=== PATIENT | male | born 1980 | race Two or more races ===

== ENCOUNTER 2018-05-22 09:56 | Emergency (ER) | payer SELFPAY ==
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
[2018-05-22 11:31] VITALS: BP 144/87
== END 2018-05-22 11:31 ==
DX: S02.2XXA Fracture of nasal bones, initial encounter for closed fracture (principal); S02.40DA Maxillary fracture, left side, initial encounter for closed fracture; Y04.8XXA Assault by other bodily force, initial encounter; Z59.0 Homelessness